=== PATIENT | female | born 2000 | race Caucasian/White ===

== ENCOUNTER 2024-07-03 13:24 | Emergency (ER) | payer MEDICAID ==
[~2024-07-03] VITALS: Ht 165.1 cm; Wt 49.9 kg
[2024-07-03 13:43] VITALS: BP 113/58; TEMP 98.5; O2SAT 97
== END 2024-07-03 14:11 | disposition home or self-care (01) ==
LOC: ER 13:24
DX: M25.531 Pain in right wrist (principal); F17.200 Nicotine dependence, unspecified, uncomplicated